=== PATIENT | female | born 1965 | race American Indian/Alaskan Native ===

== ENCOUNTER 2018-11-15 01:17 | Observation (INO) | payer SELFPAY ==
[2018-11-15] MEDS ORDERED: ASPIRIN PO ONE (01:49)
[2018-11-15 02:04] LABS: Basophils % (Auto) 0.5 % (0.0-1.8); Eosinophils # (Auto) 0.1 K/mm3 (0.0-0.4); Eosinophils % (Auto) 2.1 % (0.0-4.3); Hematocrit 40.7 % (30.3-42.9); Hemoglobin 13.7 gm/dl (10.1-14.3); Lymphocytes # (Auto) 2.1 K/mm3 (1.2-5.4); Lymphocytes % (Auto) 44.7 % (13.4-35.0); Mean Corpuscular HGB Conc 34 % (30-34); Mean Corpuscular Volume 86 fl (79-97); Monocytes # (Auto) 0.3 K/mm3 (0.0-0.8); Monocytes % (Auto) 5.4 % (0.0-7.3); Platelet Count 210 K/mm3 (140-440); Red Blood Count 4.71 M/mm3 (3.65-5.03); Red Cell Distribution Width 13.1 % (13.2-15.2)
[2018-11-15 02:26] LABS: BUN/Creatinine Ratio 20; Blood Urea Nitrogen 14 mg/dL (7-17); Calcium 9.6 mg/dL (8.4-10.2); Hemolysis Index 8
--- NOTE | 2018-11-15 02:50 | XRay Report ---
PROCEDURE: CHEST 2 VIEWS TECHNIQUE: PA and lateral chest radiographs were obtained. HISTORY: Chest Pain COMPARISONS: None. FINDINGS: Heart: Normal. Mediastinum/Vessels: Normal. Lungs/Pleural space: Normal. Bony thorax: No acute osseous abnormality. IMPRESSION: Normal examination. This document is electronically signed by Glenda Santiago DO., November 15 2018 02:48:06 AM ET
[2018-11-15] MEDS ORDERED: HumuLIN R IV ONE (03:04)
[2018-11-15] MEDS ORDERED: MORPHINE IV ONE (03:04)
[2018-11-15] MEDS ORDERED: NACL 0.9% 1000 ML 1,000 ML IV ONE (03:04)
[2018-11-15 03:35] LABS: Bilirubin,Urine NEG (Negative); Blood,Urine NEG (Negative); Color,Urine Straw (Yellow); Protein,Urine <15 mg/dL mg/dL (Negative); Urobilinogen,Urine < 2.0 mg/dL (<2.0)
--- NOTE | 2018-11-15 05:29 | Emergency Department Report ---
ED Chest Pain HPI - General Chief Complaint: Chest Pain Stated Complaint: CP/ABD PAIN Time Seen by Provider: 11/15/18 02:39 Source: patient Mode of arrival: Ambulatory Limitations: No Limitations - History of Present Illness Initial Comments: 53-year-old -[place] female presents to the emergency department with the complaint of some midsternal to left-sided chest pain that radiates to the left side of her neck and down her left arm, that started yesterday. She also complains of a 2 day history of some lower abdominal pain. She denies any n ausea, vomiting, vaginal bleeding or discharge, fever, dysuria, but did say that she has some mucus seen when she wipes after urinating. The patient has a past medical history of qkw-abrahhg-kshmliwrz diabetes, hypertension, fibromyalgia. The patient says that she ran out of her diabetes medications yesterday. Her primary care physician is Dr. Watson. She does not have a mechanic foreman. She denies any tobacco or illicit drug use. No recent travel or sick contacts at home. Severity scale (0 -10): 9 - Related Data Allergies Allergy/AdvReac Type Severity Reaction Status Date / Time ciprofloxacin [From Cipro] Allergy Itching Verified 11/15/18 01:48 cortisone Allergy Hives Verified 11/15/18 01:49 latex Allergy Hives Verified 11/15/18 01:48 Penicillins Allergy Hives Verified 11/15/18 01:48 Heart Score - HEART Score History: Moderately suspicious EKG: Normal Age: 45-65 Risk factors: 1-2 risk factors Troponin: < normal limit HEART Score: 3 - Critical Actions Critical Actions: 0-3 pts:0.9-1.7%risk of adverse cardiac event.Candidate for discharge ED Review of Systems ROS: Stated complaint: CP/ABD PAIN Other details as noted in HPI Comment: All other systems reviewed and negative Constitutional: denies: chills, fever Eyes: denies: eye pain, vision change ENT: denies: ear pain, throat pain Respiratory: shortness of breath. denies: cough Cardiovascular: chest pain. denies: palpitations Gastrointestinal: abdominal pain. denies: vomiting Genitourinary: denies: dysuria, discharge Musculoskeletal: denies: back pain, arthralgia Skin: denies: rash, lesions Neurological: denies: headache, weakness ED Past Medical Hx - Past Medical History Previous Medical History?: Yes Hx Hypertension: Yes Hx Diabetes: Yes Additional medical history: Fibromylagia - Surgical History Past Surgical History?: Yes Additional Surgical History: Tonsillectomy, Hysterectomy, Sinus Surgery - Social History Smoking Status: Never Smoker Substance Use Type: None ED Physical Exam - General Limitations: No Limitations - Other Other exam information: GENERAL: The patient is well-developed well-nourished. HENT: Normocephalic. Atraumatic. Patient has moist mucous membranes. EYES: Extraocular motions are intact. Pupils equal reactive to light bilaterally. NECK: Supple. Trachea is midline. CHEST/LUNGS: Clear to auscultation. There is no respiratory distress noted. Chest pain is not reproducible to palpation of the chest wall. HEART/CARDIOVASCULAR: Regular. There is no tachycardia. There is no murmur. ABDOMEN: Abdomen is soft. Mild lower abdominal tenderness to palpation. No guarding. Patient has normal bowel sounds. There is no abdominal distention. SKIN: Skin is warm and dry. NEURO: The patient is awake, alert, and oriented. The patient is cooperative. The patient has no focal neurologic deficits. The patient has normal speech. MUSCULOSKELETAL: There is no tenderness or deformity. There is no evidence of acute injury. ED Course Vital Signs 11/15/18 11/15/18 01:28 02:41 Temperature 97.9 F Pulse Rate 79 81 Respiratory 18 16 Rate Blood Pressure 145/88 Blood Pressure 150/93 [Right] O2 Sat by Pulse 99 98 Oximetry MARTÍNEZ score - Martínez Score Age > 65: (0) No Aspirin use within the Past 7 Days: (0) No 3 or more CAD Risk Factors: (0) No 2 or more Angina events in past 24 hrs: (1) Yes Known CAD with more than 50% Stenosis: (0) No Elevated Cardiac Markers: (0) No ST Deviation Greater than 0.5mm: (0) No MARTÍNEZ Score: 1 ED Medical Decision Making - Lab Data Result diagrams: 11/15/18 01:51 11/15/18 01:54 - EKG Data -: EKG Interpreted by Me EKG shows normal: sinus rhythm, axis, intervals, QRS complexes, ST-T waves Rate: normal - EKG Data When compared to previous EKG there are: previous EKG unavailable Interpretation: normal EKG - Radiology Data Radiology results: image reviewed interpreted by me: Chest x-ray does not show any acute process. There are no pleural effusions, obvious pneumonia and there is no pneumothorax. Abdominal x-ray shows nonspecific nonobstructive bowel gas and some increased stool volume. - Medical Decision Making This patient presents to the emergency department with complaint of some midsternal to left-sided chest pain that radiates to her neck and left arm. She also complains of some lower abdominal discomfort. EKG does not show any signs of ST elevation [place], ischemia or dysrhythmia. Chest x-ray does not show any acute process. Abdominal x-ray shows nonspecific nonobstructive bowel gas and some increased stool volume. Patient's labs have been unremarkable except for her hyperglycemia with a blood sugar of 450. She was given a liter of IV fluid and a dose of IV insulin and her blood sugar came down to about 190. There is no venous acidosis and no ketonuria and therefore she does not appear to be in diabetic ketoacidosis. She continues to have some chest discomfort despite a few rounds of pain medication. It has been a few years since the patient had any stress test. For these reasons, the patient will be admitted to the [facility] for further evaluation and treatment was accepted for admission by the hospitalist service. - Differential Diagnosis WA, PE, Costochondritis, UTI, Constipation, colitis Critical Care Time: No Critical care attestation.: If time is entered above; I have spent that time in minutes in the direct care of this critically ill patient, excluding procedure time. ED Disposition Clinical Impression: Acute chest pain Uncontrolled diabetes mellitus Qualifiers: Diabetes mellitus type: type 2 Glycemic state: with hyperglycemia Qualified Code(s): E11.65 - Type 2 diabetes mellitus with hyperglycemia Abdominal pain Qualifiers: Abdominal location: lower abdomen, unspecified Qualified Code(s): R10.30 - Lower abdominal pain, unspecified Disposition: -09 OP ADMIT IP TO THIS HOSP Is pt being admited?: Yes Condition: Fair Instructions: Chest Pain (ED), Diabetes Mellitus Type 2 in Adults (ED) Referrals: DIVINE VU MD [Primary Care Provider] - 3-5 Days Time of Disposition: 05:58
--- NOTE | 2018-11-15 06:04 | XRay Report ---
PROCEDURE: XR ABDOMEN 2V TECHNIQUE: Abdominal series, including supine and upright AP views. HISTORY: abd pain COMPARISONS: None . FINDINGS: Bowel gas pattern: Nonobstructive . Masses or calcifications: None . Bony structures: No significant abnormality . Pneumoperitoneum: None . Other: No significant findings . IMPRESSION: No acute abnormality. This document is electronically signed by Glenda Santiago DO., November 15 2018 06:01:59 AM ET
[2018-11-15] MEDS ORDERED: SODIUM CHLORIDE FLUSH SYRINGE 10 ML IV PRN (06:15)
[2018-11-15] MEDS ORDERED: MORPHINE IV PRN (06:15)
[2018-11-15] MEDS ORDERED: ZOFRAN IV PRN (06:15)
[2018-11-15] MEDS ORDERED: D50W (25GM) Syringe IV PRN (06:15)
[2018-11-15] MEDS ORDERED: TYLENOL PO PRN (06:15)
[2018-11-15] MEDS ORDERED: NITRO-BID 2% TP ONE ×2 (06:22→07:57)
--- NOTE | 2018-11-15 06:27 | History and Physical Report ---
History of Present Illness Chief complaint: chest pain History of present illness: 53-year-old woman who presents to the hospital with 1 day of chest pain. Pain is midsternal dull, 6 out of 10, radiating to her left side of her neck and left upper extremity. Also complaining of vague lower abdominal pain 2 days, the pain is dull 7/10 and radiates to the epigastrium Past medical history; hypertension [id number]-adzxwilhh diabetes, fibromyalgia, she admits that she ran out of her diabetic medications yesterday Surgical history; tonsillectomy, hysterectomy, sinus surgery Social history denies smoking or alcohol abuse or illicit drug abuse Family history denies family history of premature coronary artery disease Medications and Allergies Allergies Allergy/AdvReac Type Severity Reaction Status Date / Time ciprofloxacin [From Cipro] Allergy Itching Verified 11/15/18 01:48 cortisone Allergy Hives Verified 11/15/18 01:49 latex Allergy Hives Verified 11/15/18 01:48 Penicillins Allergy Hives Verified 11/15/18 01:48 Active Meds: Active Medications Acetaminophen (Tylenol) 650 mg PO Q4H PRN PRN Reason: Pain MILD(1-3)/Fever >100.5/JANSEN Dextrose (D50w (25gm) Syringe) 50 ml IV PRN PRN PRN Reason: Hypoglycemia Insulin Human Lispro (Humalog) 0 unit SUB-Q ACHS MCKENNA; Protocol Morphine Sulfate (Morphine) 2 mg IV Q5MIN PRN PRN Reason: Chest Pain unrelieved by NTG Nitroglycerin (Nitro-Bid 2%) 0.5 inch TP ONCE ONE; Protocol Stop: 11/15/18 06:23 Ondansetron HCl (Zofran) 4 mg IV Q8H PRN PRN Reason: Nausea And Vomiting Sodium Chloride (Sodium Chloride Flush Syringe 10 Ml) 10 ml IV PRN PRN PRN Reason: LINE FLUSH Review of Systems All systems: negative Constitutional: fatigue, no weight loss Ears, nose, mouth and throat: no ear pain Cardiovascular: chest pain Respiratory: no cough Gastrointestinal: abdominal pain Rectal: no pain Musculoskeletal: no neck stiffness Integumentary: no rash Neurological: no head injury Psychiatric: no anxiety Endocrine: no cold intolerance Hematologic/Lymphatic: no easy bruising Allergic/Immunologic: no urticaria Exam - Constitutional Vitals: Temp Pulse Resp BP Pulse Ox 97.9 F 81 16 150/93 98 11/15/18 01:28 11/15/18 02:41 11/15/18 02:41 11/15/18 02:41 11/15/18 02:41 General appearance: Present: no acute distress, well-nourished - EENT Eyes: Present: PERRL ENT: hearing intact, clear oral mucosa - Neck Neck: Present: supple, normal ROM - Respiratory Respiratory effort: normal Respiratory: bilateral: CTA - Cardiovascular Heart Sounds: Present: S1 & S2. Absent: rub, click - Extremities Extremities: pulses symmetrical, No edema Peripheral Pulses: within normal limits - Abdominal General gastrointestinal: Present: soft, non-tender, non-distended, normal bowel sounds Female genitourinary: Present: normal - Integumentary Integumentary: Present: clear, warm, dry - Musculoskeletal Musculoskeletal: gait normal, strength equal bilaterally - Psychiatric Psychiatric: appropriate mood/affect, intact judgment & insight - Neurologic Neurologic: CNII-XII intact, moves all extremities Results - Labs CBC & Chem 7: 11/15/18 01:51 11/15/18 01:54 Labs: Laboratory Last Values WBC 4.7 K/mm3 (4.5-11.0) 11/15/18 01:51 RBC 4.71 M/mm3 (3.65-5.03) 11/15/18 01:51 Hgb 13.7 gm/dl (10.1-14.3) 11/15/18 01:51 Hct 40.7 % (30.3-42.9) 11/15/18 01:51 MCV 86 fl (79-97) 11/15/18 01:51 MCH 29 pg (28-32) 11/15/18 01:51 MCHC 34 % (30-34) 11/15/18 01:51 RDW 13.1 % (13.2-15.2) L 11/15/18 01:51 Plt Count 210 K/mm3 (140-440) 11/15/18 01:51 Lymph % (Auto) 44.7 % (13.4-35.0) H 11/15/18 01:51 [place] % (Auto) 5.4 % (0.0-7.3) 11/15/18 01:51 Eos % (Auto) 2.1 % (0.0-4.3) 11/15/18 01:51 Baso % (Auto) 0.5 % (0.0-1.8) 11/15/18 01:51 Lymph # 2.1 K/mm3 (1.2-5.4) 11/15/18 01:51 [place] # 0.3 K/mm3 (0.0-0.8) 11/15/18 01:51 Eos # 0.1 K/mm3 (0.0-0.4) 11/15/18 01:51 Baso # 0.0 K/mm3 (0.0-0.1) 11/15/18 01:51 Seg Neutrophils % 47.3 % (40.0-70.0) 11/15/18 01:51 Seg Neutrophils # 2.2 K/mm3 (1.8-7.7) 11/15/18 01:51 158.48 ng/mlDDU (0-234) 11/15/18 03:16 VBG pH 7.337 (7.320-7.420) 11/15/18 03:16 Sodium 137 mmol/L (137-145) 11/15/18 01:54 Potassium 3.9 mmol/L (3.6-5.0) 11/15/18 01:54 Chloride 97.3 mmol/L (98-107) L 11/15/18 01:54 Carbon Dioxide 24 mmol/L (22-30) 11/15/18 01:54 20 mmol/L 11/15/18 01:54 BUN 14 mg/dL (7-17) 11/15/18 01:54 0.7 mg/dL (0.7-1.2) 11/15/18 01:54 Estimated GFR > 60 ml/min 11/15/18 01:54 20 % 11/15/18 01:54 Glucose 425 mg/dL (65-100) H 11/15/18 01:54 POC Glucose 196 (70-105) H 11/15/18 04:34 Calcium 9.6 mg/dL (8.4-10.2) 11/15/18 01:54 < 0.010 ng/mL (0.00-0.029) 11/15/18 03:16 Straw (Yellow) 11/15/18 Unknown Clear (Clear) 11/15/18 Unknown 6.0 (5.0-7.0) 11/15/18 Unknown Ur Specific [place] 1.032 (1.003-1.030) H 11/15/18 Unknown <15 mg/dl mg/dL (Negative) 11/15/18 Unknown >=500 mg/dL (Negative) 11/15/18 Unknown Neg mg/dL (Negative) 11/15/18 Unknown Neg (Negative) 11/15/18 Unknown Neg (Negative) 11/15/18 Unknown Neg (Negative) 11/15/18 Unknown < 2.0 mg/dL (<2.0) 11/15/18 Unknown Ur Leukocyte Esterase Tr (Negative) 11/15/18 Unknown 3.0 /HPF (0.0-6.0) 11/15/18 Unknown 1.0 /HPF (0.0-6.0) 11/15/18 Unknown U Epithel Cells (Auto) 1.0 /HPF (0-13.0) 11/15/18 Unknown - Imaging and Cardiology Chest x-ray: image reviewed (no acute findings) Assessment and Plan Assessment and plan: 53-year-old woman who presents to the hospital complaining of chest pain 1 day and mild lower abdominal pain. Has not had a recent stress test Chest pain Serial troponins, EKG no acute findings, chest x-ray no acute findings, the stress test this a.m. Uncontrolled hypertension; optimize BP meds Abdominal pain UA negative, UTI ruled out, abdominal x-ray negative we'll obtain CT abdomen and pelvis Type 2 diabetes with hyperglycemia Sliding scale insulin, check a1c DVT prophylaxis; early ambulation
[2018-11-15] MEDS: HumaLOG SUB-Q SCH ×4 (08:03→17:22)
--- NOTE | 2018-11-15 08:11 | Cat Scan Report ---
PROCEDURE: CT ABDOMEN PELVIS W CON TECHNIQUE: Computerized axial tomography of the abdomen and pelvis was performed after the administr ation of IV iodinated nonionic contrast. CT DOSE LENGTH PRODUCT: 2441.3 mGycm HISTORY: abdominal pain COMPARISONS: None . FINDINGS: Partially visualized intrathoracic contents are unremarkable. The liver, gallbladder, pancreas, spleen, and adrenal glands are unremarkable. Kidneys show no worrisome lesions, hydronephrosis, or calculi. Urinary bladder is unremarkable. Prior hysterectomy. No significant free fluid in the pelvis. Small and large bowel are normal in caliber. Appendix is normal. Moderate stool burden. No free air, free fluid, or lymphadenopathy identified. Aorta is normal in course and caliber. Superficial soft tissues are unremarkable. No acute or aggressive appearing skeletal findings. IMPRESSION: No acute findings in the abdomen or pelvis. This document is electronically signed by Mundo Delgadillo MD., November 15 2018 08:09:05 AM ET
[2018-11-15] MEDS ORDERED: LEXISCAN IV ONE ×2 (08:58→08:59)
[2018-11-15 13:39] LABS: Chol/HDL Ratio 3.11 %; HDL Cholesterol 59 mg/dL (40-59); LDL Cholesterol,Direct 121 mg/dL (50-130)
--- NOTE | 2018-11-15 15:43 | Discharge Summary ---
Providers - Providers Date of Admission: 11/15/18 06:15 Date of discharge: 11/15/18 Attending physician: AGUSTO REYES 11/15/18 06:15 Consult to Dietitian/Nutrition [CONS] Routine Physician Instructions: Reason For Exam: Reason for Consult: Diet education [facility] Condition: Stable Hospital course: Patient is a 53 yo woman with a history of hypertension kvx-sksuaie-ilxbktyrh diabetes and fibromyalgia who presented with left sided chest pains. She admits that she ran out of her diabetic medications yesterday. She underwent a thorough Cardiac evaluation including a negative stress test. Chest pain, costochrondritis most likely: Serial troponins, EKG no acute findings, chest x-ray no acute findings, the stress test this a.m. Uncontrolled hypertension; optimize BP meds Type 2 diabetes with uncontrolled hyperglycemia: Sliding scale insulin, check a1c==> 11.2 DVT prophylaxis; early ambulation prolonged inpatient services 31 minutes Disposition: WA-01 TO HOME OR SELFCARE Time spent for discharge: 32 minutes Core Measure Documentation - Palliative Care Palliative Care/ Comfort Measures: Not Applicable - Core Measures Any of the following diagnoses?: none - VTE Discharge Requirements Deep Vein Thrombosis/Pulmonary Embolism Present on Admission: No Has pt received <5 days of overlap therapy or INR<2.0: No Anticoagulant overlap therapy prescribed at discharge: No Contraindication No Overlap Therapy order at DC: Not Indicated Exam - Physical Exam Narrative exam: Gen: WDWN, NAD, Awake, Alert, Orientated HEENT: NCAT, EOMI, PERRL, OP Clear Neck: supple, no adenopathy, no thyromegaly, no JVD CVS/Heart: RRR, normal S1S2, pulses present bilaterally Chest/Lungs: CTA B, Symmetrical chest expansion, good air entry bilaterally, reproducible CW tenderness GI/Abdomen: soft, NTND, good bowel sounds, no guarding or rebound /Bladder: no suprapubic tenderness, no CVA or paraspinal tenderness Extermity/Skin: no c/c/e, no obvious rash MSK: FROM x 4 Neuro: CN 2-12 grossly intact, no new focal deficits Psych: calm - Constitutional Vitals: Temp Pulse Resp BP Pulse Ox 98.2 F 97 H 18 118/70 95 11/15/18 12:30 11/15/18 12:30 11/15/18 12:30 11/15/18 12:30 11/15/18 08:15 Plan Activity: other (no strenous activity unless cleared by PCP) Diet: diabetic Special Instructions: record daily BP diary, record blood sugar diary (three times a day ) Follow up with: JEFRY RIOSMODEL MD JOE [Primary Care Provider] - 3-5 Days Prescriptions: metFORMIN [Glucophage] 1,000 mg PO BID #60 tablet glipiZIDE [Glucotrol] 10 mg PO BID #60 tab
[2018-11-15 17:23] VITALS: BP 141/89
--- NOTE | 2018-11-15 17:49 | Treadmill Report ---
ORDERING PHYSICIAN: Caterina Soni MD FINDINGS: There is no scintigraphic evidence of myocardial ischemia. The left ventricle is normal in size. The left ventricular ejection fraction is estimated at 70%. There is normal wall motion and wall thickening on gated imaging. CONCLUSION: Normal perfusion scan. JOB# [id number] LIZZIE/NTS
== END 2018-11-15 18:44 | disposition home or self-care (01) ==
LOC: ED 01:17 → SUATTDRO 01:17 → 4A 06:15
PROVIDERS: ADMIT Internal Medicine; ATTEND Internal Medicine
DX: R07.89 Other chest pain (principal); R10.30 Lower abdominal pain, unspecified; I10 Essential (primary) hypertension; E11.9 Type 2 diabetes mellitus without complications; M79.7 Fibromyalgia; Z90.89 Acquired absence of other organs; Z90.710 Acquired absence of both cervix and uterus; Z98.890 Other specified postprocedural states
CPT/HCPCS: 36415; 71046; 74019; 74177; 78452; 80048; 80061; 81001; 82805; 82962; 83036; 84484; 85025; 85379; 93005; 93010; 93017; 93306; 96372; 96374; 96375; 96376; 99284; A9502; G0378; J2270; J2785; J7030; Q9967; 99291; J1815

== ENCOUNTER 2021-05-06 11:33 | Outpatient (CLI) | payer OTHER | END 2021-05-06 11:34 | disposition home or self-care (01) | LOC: LABHHL 11:33 | PROVIDERS: ATTEND Otolaryngology Otology & Neurotology | DX: J32.0 Chronic maxillary sinusitis (principal); J32.2 Chronic ethmoidal sinusitis; J34.3 Hypertrophy of nasal turbinates | CPT/HCPCS: 88305; 88311 ==